=== PATIENT | female | born 1930 | race Caucasian/White ===

== ENCOUNTER → 2016-12-24 | Outpatient (CLI) | payer OTHER | LOC: BRMIMAGING 08:58 | PROVIDERS: ATTEND Family Medicine | DX: Z12.39 Encounter for other screening for malignant neoplasm of breast (principal); N64.4 Mastodynia; N64.59 Other signs and symptoms in breast | CPT/HCPCS: 76641; G0204 ==

== ENCOUNTER 2018-01-16 08:51 | Emergency (ER) | payer OTHER ==
[2018-01-16] MEDS ORDERED: NS 500 ML IV ONE (09:19)
[2018-01-16] MEDS ORDERED: ONDANSETRON 4 MG/2 ML VIAL IVP ONE (09:21)
--- NOTE | 2018-01-16 09:27 | EDPHY ---
H & P Stated Complaint: 430 am abd pain in the RLQ. 8/10 Time Seen by Provider: 01/16/18 09:01 HPI/ROS: This patient complains of right lower quadrant abdominal pain sharp in nature 8/ 10 intensity that awakened her from sleep at 4:00 a.m. This morning. A friend drove her in by private vehicle for evaluation. She felt well last night. She does recall having this pain before. The pain does not worsen with walking but does worsen if she bends forward at the waist. She notices associated tenderness when she touches the area. She took 500 mg of Tylenol shortly prior to arrival with minimal change her pain. No other exacerbating factors are noted. She has associated nausea and anorexia without vomiting. She had half a bowl of cereal and stopped eating because of the nausea and cup of coffee shortly prior to arrival. The pain does not radiate ROS: Constitutional: No fevers. No other constitutional complaints new line HEENT: No recent URI symptoms or other complaints. Pulmonary: No cough shortness of breath. Cardiovascular: No heart palpitations or chest pain. No lightheadedness. No lower extremity swelling. GI: She has noticed any significant bloating. She reports mild constipation characterized by firm stools but she still having regular bowel movements and she states that is pretty typical for her to go from loose stools to firm stools over. The the few days at a time. In short, she does not feel that is been a change in her bowel habits or in the character of her stool-no dark tarry stools or bloody stools. : No dysuria, frequency or urgency noted. No flank pain. Integumentary: No rash. Endo: No diaphoresis or other complaints new line 10 point review of systems is performed and otherwise negative for positive findings other than what is noted in HPI. Source: Patient Exam Limitations: No limitations - Personal History Current Tetanus/Diphtheria Vaccine: Unsure Current Tetanus Diphtheria and Acellular Pertussis (TDAP): Unsure - Medical/Surgical History Hx Asthma: No Hx Chronic Respiratory Disease: No Hx Diabetes: No Hx Cardiac Disease: Yes Hx Renal Disease: No Hx Cirrhosis: No Hx Alcoholism: No Hx HIV/AIDS: No Hx Splenectomy or Spleen Trauma: No Other PMH: HTN, HYPOTHYROID, CARDIAC ABLATION, COLON CANCER & SURGERY. appendectomy? - Family History Significant Family History: No pertinent family hx - Social History Smoking Status: Never smoked Alcohol Use: None Drug Use: None Additional Social History: The patient lives alone and is accompanied by a friend named Drew shine who drove her here. - Physical Exam Exam: Vital signs and normal with exception of hypertension 171/100 General Appearance: Pleasant 87-year-old female Alert, no distress. Eyes: Pupils equal and round no pallor or injection. ENT, Mouth: Mucous membranes moist. Respiratory: There are no retractions, lungs are clear to auscultation. Cardiovascular: Regular rate and rhythm. Gastrointestinal: Normoactive, soft, clean dry intact midline lower belly surgical incision scar, moderate right lower quadrant tenderness with no guarding or rebound. Rovsing's is negative. Heel-tap sign is neg. Neurological: GCS 15 Skin: Warm and dry, no rashes. Musculoskeletal: Neck is supple nontender. Extremities are symmetrical, full range of motion. Psychiatric: Mood and affect are normal DIFFERENTIAL DIAGNOSIS: After history and physical exam differential diagnosis was considered for appendicitis, diverticulitis, early bowel obstruction, recurrent bowel cancer, intussusception, constipation, UTI Constitutional: Initial Vital Signs Temperature (C) 36.7 C 01/16/18 08:56 Heart Rate 80 01/16/18 08:56 Respiratory Rate 20 01/16/18 08:56 Blood Pressure 171/100 H 01/16/18 08:56 O2 Sat (%) 97 01/16/18 08:56 O2 Delivery Mode Room Air Allergies/Adverse Reactions: No Known Allergies Allergy (Verified 01/16/18 08:52) Home Medications: Medication Instructions Recorded Omeprazole [Prilosec 20 mg] 20 mg PO DAILY 09/14/15 Apixaban [Eliquis] 5 mg PO BID #60 tab 09/16/15 Metoprolol Succinate Xr [Toprol Xl] 12.5 mg PO DAILY #30 tab.sr 09/16/15 Propafenone HCl [Rythmol 150mg (*)] 150 mg PO Q8 #90 tab 09/16/15 Cephalexin [Keflex (*)] 500 mg PO TID #21 cap 01/16/18 Docusate Sodium [Colace 100 MG (*)] 100 mg PO BID PRN #20 cap 01/16/18 Levothyroxine 01/16/18 Ondansetron Odt [Zofran Odt] 4 - 8 mg PO Q4PRN PRN #4 tab 01/16/18 Medical Decision Making - Diagnostics Imaging Results: Imaging Impressions Abdomen CT 01/16/18 09:54 Impression: 1. Relatively stable cholelithiasis without CT evidence of cholecystitis. 2. Mild to moderate constipation from the level of the cecum to the splenic flexure. 3. No new significant abnormality within the abdomen and pelvis. Findings discussed with Momo Morton M.D. at 10:41 hour, 01/16/2018. Imaging: Discussed imaging studies w/ media account executive Radiologist ED Course/Re-evaluation: IV normal saline bolus Reglan and Benadryl, Levsin with partial relief of discomfort and positive relief of nausea. After review of urinalysis-Keflex p.o.. Discussion: Patient with right lower quadrant abdominal pain uncertain if she had had appendicitis with prior colon surgery in the past. We ruled out acute appendicitis with CT abdomen pelvis showing only constipation. Micro consistent with UTI. I suspect that her pain is attributable to combination of cystitis and constipation. Given nausea and elevated white count she may have early pyelonephritis as well. I counseled regarding this some detail. Patient will follow up with primary care physician understands need to return emergency department should she have significant worsening despite treatment plan - Data Points Laboratory Results: 01/16/18 01/16/18 09:40 09:35 POC Sodium 143 mEq/L mEq/L (135-145) POC Potassium 3.5 mEq/L mEq/L (3.3-5.0) POC Chloride 104.0 mEq/L mEq/L (97-110) POC Total CO2 25 mEq/L mEq/L (22-31) POC BUN 16 mg/dL mg/dL (7-23) POC Creatinine 0.9 mg/dL mg/dL (0.6-1.0) POC Glucose 111 mg/dL H mg/dL (70-100) POC Calcium 9.6 mg/dL mg/dL (8.5-10.4) Urine RBC 1-3 /hpf /hpf (0-3) Urine WBC 25-50 /hpf H /hpf (0-3) Ur Epithelial Cells TRACE /lpf /lpf (NONE-1+) Urine Bacteria 4+ /hpf H /hpf (NONE SEEN) Urine Mucus TRACE /lpf /lpf (NONE-1+) Urine dip POC revealed leukocytes but no other findings. This was sent over for urine micro with findings as above. [place] [address]. H&H and platelets are normal Medications Given: Discontinued Medications Cephalexin HCl (Keflex) 500 mg PO EDNOW ONE PRN Reason: Protocol Stop: 01/16/18 11:49 Last Admin: 01/16/18 11:53 Dose: 500 mg Diphenhydramine HCl (Benadryl Injection) 25 mg IVP EDNOW ONE Stop: 01/16/18 09:33 Last Admin: 01/16/18 09:46 Dose: 25 mg Hyoscyamine Sulfate (Levsin, Hyomax-Sl) 0.125 mg PO EDNOW ONE Stop: 01/16/18 10:52 Last Admin: 01/16/18 11:03 Dose: 0.125 mg Sodium Chloride (Ns) 500 mls @ 0 mls/hr IV EDNOW ONE; Wide Open PRN Reason: Protocol Stop: 01/16/18 09:20 Last Admin: 01/16/18 09:30 Dose: 500 mls Ketorolac Tromethamine (Toradol) 15 mg IVP EDNOW ONE Stop: 01/16/18 10:26 Last Admin: 01/16/18 10:30 Dose: 15 mg Metoclopramide HCl (Reglan Injection) 5 mg IVP EDNOW ONE Stop: 01/16/18 09:33 Last Admin: 01/16/18 09:49 Dose: 5 mg Point of Care Test Results: CBC CBC Collection Date 01/16/18 CBC Collection Time 09:32 WBC 11.2 RBC 4.79 HGB 13.4 HCT 40.3 PLT 149 Neut # 9.4 Neut 84.2 LYMPH # 1.0 LYMPH 9.1 Other WBC # 0.8 Other WBC 6.7 MCV 84.1 Chemistry 01/16/18 09:40 POC Sodium 143 mEq/L mEq/L (135-145) POC Potassium 3.5 mEq/L mEq/L (3.3-5.0) POC Chloride 104.0 mEq/L mEq/L (97-110) POC Total CO2 25 mEq/L mEq/L (22-31) POC BUN 16 mg/dL mg/dL (7-23) POC Creatinine 0.9 mg/dL mg/dL (0.6-1.0) POC Glucose 111 mg/dL H mg/dL (70-100) POC Calcium 9.6 mg/dL mg/dL (8.5-10.4) Urine Dip Collection Date 01/16/18 Collection Time 09:40 Specific [place] (1.002-1.030) 1.005 PH (5.0-7.5) 6.0 Leukocytes (Negative) 2+ Nitrites (Negative) Negative Protein (Negative) Negative Glucose (Negative) Negative Ketones (Negative) Negative Urobilnogen (0.2-1.0 EU) 0.2 Bilirubin (Negative) Negative Blood (Negative) Trace Departure - Departure Disposition: Home, Routine, Self-Care Clinical Impression: Right lower quadrant abdominal pain Urinary tract infection Qualifiers: Urinary tract infection type: site unspecified Hematuria presence: without hematuria Qualified Code(s): N39.0 - Urinary tract infection, site not specified Constipation Qualifiers: Constipation type: unspecified constipation type Qualified Code(s): K59.00 - Constipation, unspecified Condition: Good Instructions: Constipation (ED), Urinary Tract Infection in Women (ED), Acute Abdominal Pain (ED) Additional Instructions: Diagnoses: 1. Right lower quadrant abdominal pain 2. Urinary tract infection 3. Constipation Plan: Drink plenty fluids Light diet to feel improved Zofran for nausea vomiting if needed Colace stool softener daily for constipation as needed -1 or 2 tabs per day Keflex antibiotic as prescribed Tylenol for pain if needed Follow up with primary care physician for any ongoing symptoms Return emergency department for any significant worsening of your symptoms despite the treatment plan. Referrals: Rula Urbina MD [Primary Care Provider] - As per Instructions Prescriptions: Cephalexin [Keflex (*)] 500 mg PO TID #21 cap Docusate Sodium [Colace 100 MG (*)] 100 mg PO BID PRN #20 cap PRN Reason: Constipation Ondansetron Odt [Zofran Odt] 4 - 8 mg PO Q4PRN PRN #4 tab PRN Reason: Vomiting
[2018-01-16] MEDS ORDERED: METOCLOPRAMIDE 10 MG/2 ML VIAL IVP ONE (09:32)
[2018-01-16] MEDS ORDERED: IOPAMIDOL (ISOVUE-300) 100 ML BTL ONE (10:01)
[2018-01-16] MEDS ORDERED: KETOROLAC 15 MG/1 ML SDV IVP ONE (10:25)
[2018-01-16] MEDS ORDERED: HYOSCYAMINE SULFATE 0.125 MG TAB PO ONE (10:51)
[2018-01-16] MEDS ORDERED: CEPHALEXIN 500 MG CAP PO ONE (11:48)
[2018-01-16 12:00] VITALS: BP 149/85
== END 2018-01-16 12:10 | disposition home or self-care (01) ==
LOC: CED 08:51
DX: R10.31 Right lower quadrant pain (principal); N39.0 Urinary tract infection, site not specified; K59.00 Constipation, unspecified; E86.9 Volume depletion, unspecified; Z85.038 Personal history of other malignant neoplasm of large intestine; Z90.49 Acquired absence of other specified parts of digestive tract
CPT/HCPCS: 74177; 96374; 96375; 99285; J1200; J1885; J2765; Q9967; 80048-PO

== ENCOUNTER → 2018-01-21 | Outpatient (CLI) | payer OTHER ==
[~2018-01-21] MED LIST: IOPAMIDOL (ISOVUE-300) 100 ML BTL ONE
== END ==
LOC: CIMAGING 15:18
PROVIDERS: ATTEND Family Medicine
DX: K57.12 Diverticulitis of small intestine without perforation or abscess without bleeding (principal); K80.20 Calculus of gallbladder without cholecystitis without obstruction
CPT/HCPCS: 74177; Q9967